=== PATIENT | female | born 1985 | race Caucasian/White ===

== ENCOUNTER 2019-12-23 17:28 | Emergency (ER) | payer OTHER ==
[~2019-12-23] VITALS: Ht 172.7 cm; Wt 68.2 kg
[2019-12-23 17:38] VITALS: BP 139/79
--- NOTE | 2019-12-23 18:05 | PHYS DOC ---
Past History Past Medical History: No Pertinent History Past Surgical History: No Surgical History Alcohol Use: None Adult General Chief Complaint Chief Complaint: EYE PROBLEMS [facility] HPI Patient is a 34-year-old female who presents with left eye pain. Onset was just prior to arrival. Patient reports playing with her child who accidentally hit patient in left eye with brim of baseball cap. Patient suffered immediate pain and copious tearing. She denies any changes in vision, obvious orbit or eye abnormalities, no history of ocular abnormalities in the past. Patient admits wearing contacts and was wearing contact at time of injury Review of Systems Review of Systems Fourteen body systems of review of systems have been reviewed. See HPI for pertinent positives and negative responses, other michel all other systems are negative, non-pertinent or non-contributory Allergies Allergies Allergies Coded Allergies Type Severity Reaction Last Updated Verified No Known Drug Allergies 12/23/19 No Physical Exam Physical Exam Constitutional: Well developed, well nourished, no acute distress, non-toxic appearance. HENT: Normocephalic, atraumatic, bilateral external ears normal, oropharynx moist, no oral exudates, nose normal. Eyes: PERRLA, EOMI, mild left injected conjunctiva, no discharge but clear tearing of left eye present, visual acuity and nugent intact, comprehensive eyelid examination normal, slit-lamp examination performed with corneas unremarkable without fluorescein uptake and negative Estuardo sign, slit lamp examination of left eye consistent with approximately 6 mm corneal abrasion directly over cornea consistent with corneal abrasion Neck: Normal range of motion, no tenderness, supple, no stridor. Cardiovascular: Heart rate regular, sinus rhythm, no murmurs rubs or gallops Lungs & Thorax: Bilateral breath sounds clear to auscultation Abdomen: Bowel sounds normal, soft, no tenderness, no masses, no pulsatile masses. Nonsurgical abdomen, no peritoneal signs Skin: Warm, dry, no erythema, no rash. Back: No tenderness, no CVA tenderness. Extremities: No tenderness, no cyanosis, no clubbing, ROM intact, no edema. Neurologic: Alert and oriented X 3, grossly normal motor & sensory function, no focal deficits noted. Psychologic: Affect normal, judgement normal, mood normal. Current Patient Data Vital Signs Vital Signs Date Time Temp Pulse Resp B/P (MAP) Pulse Ox O2 Delivery O2 Flow Rate FiO2 12/23/19 17:38 98.8 76 18 139/79 (99) 100 EKG EKG [] Radiology/Procedures Radiology/Procedures [] Course & Med Decision Making Course & Med Decision Making Ambulatory well-appearing patient seen on ER arrival ABCs nonconcerning Comprehensive history and physical exam obtained, discussed most likely diagnosis of corneal abrasion with patient I discussed need for antibiotic coverage to cover Pseudomonas as she was a contact lens wear in addition to short term ophthalmic NSAID use I educated patient on most likely diagnosis and recovery course. I stressed need for outpatient PCP and likely ophthalmology follow-up in upcoming 48 hours for reevaluation, patient has good outpatient support and admits she will be able to do this Strict return precautions were discussed with good understanding by patient, all questions and concerns addressed prior to ER departure home in stable condition with close PCP and Ortho follow-up, prescription for tobramycin and ophthalmic ketorolac for left eye Dragon Disclaimer Dragon Disclaimer This electronic medical record was generated, in whole or in part, using a voice recognition dictation system. Departure Departure: Impression: Primary Impression: Injury of conjunctiva and corneal abrasion of left eye w/o FB Disposition: 01 DC HOME SELF CARE/HOMELESS Condition: STABLE Referrals: PCP,NO (PCP) PLEASE CALL PCP TOMORROW TO SCHEDULE OUTPATIENT FOLLOW-UP APPOINTMENT AND DISCUSS NEED FOR OPTHO REFERRAL WITHIN UPCOMING 48 HOURS AFTER INJURY FOR REEVALUATION Patient Instructions: Eye - Corneal Abrasion Scripts Tobramycin (TOBRAMYCIN) 5 Ml Drops 1 DROP EACHEYE QID for corneal abrasion for 5 Days, #5 ML 0 Refills Prov: INGE MEANS DO 12/23/19 Ketorolac Tromethamine (KETOROLAC TROMETHAMINE) 5 Ml Drops 1 DROP EACHEYE QID for pain for 2 Days, #5 ML 0 Refills Prov: INGE MEANS DO 12/23/19 INGE MEANS DO Dec 23, 2019 18:05
[2019-12-23] MEDS ORDERED: KETO5DRO72 EACHEYE (18:18)
[2019-12-23] MEDS ORDERED: TOBR5DRO6 EACHEYE (18:20)
== END 2019-12-23 18:27 | disposition home or self-care (01) ==
LOC: ER 17:28
DX: S05.02XA Injury of conjunctiva and corneal abrasion without foreign body, left eye, initial encounter (principal); W50.0XXA Accidental hit or strike by another person, initial encounter; Y93.89 Activity, other specified; Y92.89 Other specified places as the place of occurrence of the external cause; Y99.8 Other external cause status
CPT/HCPCS: 99283

== ENCOUNTER → 2020-03-13 | Outpatient (CLI) | payer OTHER ==
[~2020-03-13] MED LIST: KETO5DRO72 EACHEYE; TOBR5DRO6 EACHEYE
[2020-03-13 09:14] LABS: BASO % 0 % (0-3); EOS # 0.1 x10^3/uL (0.0-0.7); EOS % 3 % (0-3); HEMATOCRIT 44.2 % (36.0-47.0); HEMOGLOBIN 15.3 g/dL (12.0-15.5); LYMPH # 1.8 x10^3/uL (1.0-4.8); LYMPH % 39 % (24-48); MEAN CORPUSCULAR HEMOGLOBIN 32 pg (25-35); MEAN CORPUSCULAR HGB CONC 35 g/dL (31-37); MEAN CORPUSCULAR VOLUME 91 fL (79-100); MONO # 0.3 x10^3/uL (0.0-1.1); MONO % 7 % (0-9); NEUT # 2.3 x10^3uL (1.8-7.7); NEUT % 51 % (31-73); PLATELET COUNT 127 x10^3/uL (140-400); RED BLOOD COUNT 4.87 x10^6/uL (3.50-5.40); RED CELL DISTRIBUTION WIDTH 12.2 % (11.5-14.5); WHITE BLOOD COUNT 4.6 x10^3/uL (4.0-11.0)
[2020-03-13 09:24] LABS: ALBUMIN 3.9 g/dL (3.4-5.0); DIRECT BILIRUBIN 0.2 mg/dL (0.0-0.2); TOTAL BILIRUBIN 0.6 mg/dL (0.2-1.0); TOTAL PROTEIN 7.1 g/dL (6.4-8.2)
[2020-03-13 22:07] LABS: DHEA SO4 160.5 ug/dL (84.8-378.0); FSH 6.2 mIU/mL (.); LUTEINIZING HORMONE 51.6 mIU/mL (.); PROLACTIN 12.9 ng/mL (4.8-23.3); TESTOSTERONE TOTAL 73 ng/dL (8-48)
[2020-03-14 03:24] LABS: HEMOGLOBIN A1C 4.8 % (4.8-5.6)
== END ==
LOC: LAB 07:46
PROVIDERS: ATTEND Nurse Practitioner Women's Health
DX: E28.2 Polycystic ovarian syndrome (principal)
CPT/HCPCS: 36415; 80076; 82627; 83001; 83002; 83036; 83525; 84146; 84403; 84443; 85025